=== PATIENT | male | born 1995 | race African-American/Black ===

== ENCOUNTER 2020-06-23 00:28 | Outpatient (CLI) | payer BC, SELFPAY ==
[2020-06-23 19:17] LABS: SARS-CoV-2 RNA PCR Negative
== END 2020-06-23 00:29 | disposition home or self-care (01) ==
LOC: ANHCOVIDDT 00:28
PROVIDERS: PCP Internal Medicine; Visit Provider Internal Medicine Gastroenterology
DX: Z01.812 Encounter for preprocedural laboratory examination (principal); Z20.822 Contact with and (suspected) exposure to COVID-19
CPT/HCPCS: C9803; U0003; U0005

== ENCOUNTER 2020-06-26 01:31 | Day surgery (SDC) | payer BC, SELFPAY ==
[2020-06-16 15:13] VITALS: BMI 51.0
--- NOTE | 2020-06-26 10:39 | WPDANESEPPF ---
Anes - Initial Pre Proc Eval Procedure: Operation Date: 06/26/20 12:15 Proposed Procedures p Esophagogastroduodenoscopy & Colonoscopy - Severo Garcia MD Date/Time: 06/26/20 10:39 Surgeon: Severo Garcia MD Pre Op Diagnosis: GERD, Change in Bowel Habits, Weight Loss Patient Data Age: 25 Gender: M Height: 1.91 m Weight: 185 kg Allergies Allergy/AdvReac Type Severity Reaction Status Date / Time No Known Allergies Allergy Verified 06/26/20 10:19 Home Medications Medication Instructions Recorded Confirmed Type alprazolam 0.5 mg tablet 0.5 mg PO DAILY 05/16/20 06/16/20 History omeprazole 20 mg capsule,delayed 20 mg PO DAILY 05/16/20 06/16/20 History release sertraline 50 mg tablet 50 mg PO DAILY 05/16/20 06/16/20 History sodium,potassium,mag sulfates 17.5 See Rx Instructions PO .COMPLEX 06/23/20 Rx gram-3.13 gram-1.6 gram oral soln #354 ml Patient hx anesthesia problems: none Family hx anesthesia problems: none [facility] Past Medical History Medical History (Updated 05/16/20 @ 10:47 by Bel Ring, [employer]) Anxiety Change in bowel habits GERD (gastroesophageal reflux disease) Morbid (severe) obesity due to excess calories Shortness of breath Weight loss, abnormal Social History Social History Smoking status: Never smoker Alcohol intake: never Substance use: former Substance use type: marijuana Living arrangements: with family Spiritual care concerns: No Anes - Eval Final PreProcedure Day of Procedure 06/26/20 10:39 Patient weight: super morbidly obese Heart: regular rate and rhythm Lungs: clear to auscultation and normal air movement Airway: Mallampati scale class II Neurological: alert and oriented Last oral intake: >/= 8 hours ASA classification: III Emergent: no Anesthetic plan: proceed Anesthesia type and monitoring: general GIVS Informed Consent: The patient's anesthetic plan and its attendant risks and benefits were discussed with the patient/family/POA. Questions were solicited and answers provided to the satisfaction of the patient/family/POA.
[2020-06-26 10:45] VITALS: BP 152/98; PULSE 88; RESP 18; TEMP 36.7; O2SAT 98
[2020-06-26] MEDS: LACTATED RINGERS 1,000 ML 150 ML IV CONT (10:59)
--- NOTE | 2020-06-26 11:19 | PM.HPGS ---
History of Present Illness History of Present Illness Consent: Risks, benefits, and alternatives have been discussed and questions answered. Patient agrees to proceed with procedure. Chief complaint: GERD, Change in Bowel Habits, Weight Loss Narrative: Saleem Parra is a 25 year old male with gerd symptoms and weight loss Review of Systems Constitutional: Constitutional: Denies headache(s) and Denies weakness Eyes: Eyes: Denies blurry vision ENT: Reports Normal hearing present, Denies headache(s) and Denies neck pain Cardiovascular: Cardiovascular: Denies chest pain and Denies dyspnea Respiratory: Respiratory: Denies dyspnea Gastrointestinal: Gastrointestinal: Reports no additional gastrointestinal complaints Genitourinary: Genitourinary: Denies dysuria Musculoskeletal: Musculoskeletal: Denies neck pain Integumentary/Breasts: Skin/Breast: Denies dry skin Neurologic: Reports Normal hearing present, Denies headache(s) and Denies weakness Psychiatric: Psychiatric: Denies anxiety Endocrine: Endocrine: Denies change in body appearance Hematologic/Lymphatic: Hematologic/Lymphatic: Denies easy bleeding Allergic/Immunologic: Allergic/Immunologic: Denies urticaria PMFSH Past Medical History Medical History (Updated 05/16/20 @ 10:47 by AMMON ButterfieldN-C) Anxiety Change in bowel habits GERD (gastroesophageal reflux disease) Morbid (severe) obesity due to excess calories Shortness of breath Weight loss, abnormal Social History Social History Smoking status: Never smoker Alcohol intake: never Substance use: former Substance use type: marijuana Living arrangements: with family Spiritual care concerns: No Meds Home Medications and Allergies Home Medications Medication Instructions Recorded Confirmed Type alprazolam 0.5 mg tablet 0.5 mg PO DAILY 05/16/20 06/26/20 History omeprazole 20 mg capsule,delayed 20 mg PO DAILY 05/16/20 06/26/20 History release sertraline 50 mg tablet 50 mg PO DAILY 05/16/20 06/26/20 History Allergies Allergy/AdvReac Type Severity Reaction Status Date / Time No Known Allergies Allergy Verified 06/26/20 10:19 Vital Signs Vital Signs - 24 hr 06/26/20 10:45 Temperature 98.0 F Pulse Rate 88 Respiratory Rate 18 Blood Pressure 152/98 H Pulse Oximetry 98 Exam Const: General: comfortable and no acute distress Nutritional Appearance: obese HENMT: General nose exam: Normal nares present Eyes: General: appearance normal, both eyes and all related structures Neck: Neck: no JVD Resp: Auscultation: clear to auscultation bilaterally Cardio: Rate: regular rate Rhythm: regular rhythm GI: Inspection: non-distended GI Palp: Yes Soft to palpation Skin: General skin exam: normal color Neuro: General: gait normal Speech: normal speech Extrem: General: normal to inspection Psych: Mental Status: mental status grossly normal Assessment and Plan Assessment and plan (1) GERD (gastroesophageal reflux disease): Code(s): K21.9 - Gastro-esophageal reflux disease without esophagitis Status: Acute Assessment and Plan: egd with bx (2) Weight loss, abnormal: Code(s): R63.4 - Abnormal weight loss Status: Acute Assessment and Plan: also colonoscopy
[2020-06-26 11:43] VITALS: BP 132/87; PULSE 80; RESP 25; O2SAT 99
[2020-06-26 11:53] VITALS: BP 129/88; PULSE 74; RESP 18; O2SAT 100
[2020-06-26 12:03] VITALS: BP 146/98; PULSE 74; RESP 17; O2SAT 100
[2020-06-26 12:13] VITALS: BP 145/100; PULSE 68; RESP 19; O2SAT 100
== END 2020-06-26 12:25 | disposition home or self-care (01) ==
PROVIDERS: PCP Internal Medicine; Visit Provider Internal Medicine Gastroenterology
PROC: 0DJ08ZZ Inspection of Upper Intestinal Tract, Via Natural or Artificial Opening Endoscopic (ICD-10-PCS; CPT 43235; principal; 2020-06-26 12:15)
DX: R63.4 Abnormal weight loss (principal); K64.8 Other hemorrhoids; R19.4 Change in bowel habit; K44.9 Diaphragmatic hernia without obstruction or gangrene; R11.0 Nausea; K21.9 Gastro-esophageal reflux disease without esophagitis; F41.9 Anxiety disorder, unspecified; E66.01 Morbid (severe) obesity due to excess calories; Z68.43 Body mass index [BMI] 50.0-59.9, adult
CPT/HCPCS: 45378; 43239; 88305; J2704; J7120